=== PATIENT | female | born 1990 | race Caucasian/White ===

== ENCOUNTER 2017-11-16 14:39 | Inpatient (IN) ==
[2017-11-16] MEDS ORDERED: Oxytocin 20 units/ LR 1000 mL 20 UNIT/1,000 ML BAG IVC ONE (14:43)
[2017-11-16] MEDS ORDERED: Famotidine 20 MG/2 ML VIAL IVP ONE (14:43)
[2017-11-16] MEDS ORDERED: CeFAZolin Premix DUPLEX 2,000 MG/50 ML BAG IVPB ONE (14:43)
[2017-11-16] MEDS ORDERED: Metoclopramide 10 MG/2 ML VIAL IVP ONE (14:43)
[2017-11-16] MEDS ORDERED: Ringers Solution, Lactated 1,000 ML IVC SCH ×2 (14:45→16:15)
--- NOTE | 2017-11-16 14:49 | OB/GYN History & Physical ---
Date of Encounter: 11/16/17 Time of Encounter: 14:45 Assessment and Plan (1) and not yet delivered in third trimester Current visit: Yes Status: Acute (2) 37 weeks gestation of Current visit: Yes Status: Acute (3) Spontaneous rupture of membranes Current visit: Yes Status: Acute (4) Breech presentation Current visit: Yes Status: Acute Patient will be Kept nothing by mouth for primary low transverse section Qualifiers: Fetus number: single or unspecified fetus Qualified Code(s): O32.1XX0 - Maternal care for breech presentation, not applicable or unspecified History of Present Illness HPI: Ms. Miranda is a 27 year old female 3 para 2 at 37 and 0 seconds weeks who presented to labor and delivery with complaint of leaking of fluid starting approximately 1 PM she states she was at the grocery store had a large gush of fluid on arrival to labor and delivery patient was noted to be grossly ruptured with positive nitrazine ferning and pooling. Patient states that last ultrasound she was breech bedside ultrasound does confirm she is still breech. Because of this patient will be scheduled for a primary section today. She states that she is not really feeling any contractions still having good movement no bleeding. Patient is O+, rubella negative, GBS negative, Varicella positive Past Med Surg Social Fam HX - Past Medical History Source: patient, old records reviewed Medical history: no medical history Psychiatric history: anxiety - Past Surgical History Surgical History: other Additional surgical history: wisdom teeth, nasal surgery - Social History Smoking Status: Never smoker Smokeless Tobacco Status: No Alcohol use: none Drug use: none Occupational status: employed Current living situation: Home - Independent Activity Level: Independent ambulation Recent Out of Country Travel Within the Last 8 Weeks: Yes Exposure or Possible Exposure to Illness During Travel: Yes - Family History Mother Adopted: No Family Member Ethnicity: Non- Living Status: Still Living Hx Family Cardiac Disorders: No Hx Family Respiratory Disorders: No Hx Family Cancer: No Hx Family GI Disorders: No Hx Family Endocrine Disorder: No Hx Family Neuromuscular Disorders: No Hx Family Neurologic Disorders: No Hx Family HEENT Disorders: No Hx Family Autoimmune Disorders: No - Additional Family History Additional family history: Family history noncontributory Obstetrical History - Pregnancies : 3 Para: 2 Term: 2 : 0 Ab's: 0 Livin Medications and Allergies Vit/Iron Fumarate/FA [ Tablet] 1 tab PO DAILY 01/24/16 [History ] Ibuprofen [Motrin] 600 mg PO Q6HR PRN #40 tablet 03/03/16 [Rx] 3 Allergy/AdvReac Type Severity Reaction Status Date / Time No Known Allergies Allergy Verified 01/24/16 19:42 Review of System OB All systems PM: reviewed and no additional remarkable complaints except as stated Exam - Constitutional Constitutional: well developed, well nourished, no acute distress, average body habitus - HEENT HEENT: EOMI, PERRL, Mucus Membranes Moist - Neck Neck exam: full ROM - Lungs Respiratory exam: CTAB - Cardiovascular Cardiovascular exam: RRR - Abdomen Abdomen: Present: bowel sounds normal, gravid (breech by bedside US) - Vagina Vagina: Present: normal moisture (Nitrazine positive, ferning positive, pooling positive) - Cervix Dilation: 2 Effacement: 50 Station: -2 Results All other labs normal.
--- NOTE | 2017-11-16 14:50 | Anesthesia Evaluation PreOp ---
Date of Encounter: 11/16/17 Time of Encounter: 15:00 - Past History Planned Operation: Primary Cardiac History: Denies any Significant Hx Pulmonary History: Denies Any Significant HX ENVIRONMENTAL CONSTRUCTION ENGINEER History: Denies Any Significant HX Other Medical History: Denies Any Significant HX Anesthesia History: No Prior Anesthetic Complications : Yes (37 weeks ) Alcohol Use: none Drug use: none Medications and Allergies Vit/Iron Fumarate/FA [ Tablet] 1 tab PO DAILY 01/24/16 [History ] Ibuprofen [Motrin] 600 mg PO Q6HR PRN #40 tablet 03/03/16 [Rx] 3 Allergy/AdvReac Type Severity Reaction Status Date / Time No Known Allergies Allergy Verified 01/24/16 19:42 - Meds/Allergy Pre-op Review Medications Reviewed: Yes Allergies Reviewed: Yes Beta Blockers on Current Med List: No Anesthesia Results - Labs Laboratory Tests 06/16/15 09/15/17 12:30 14:45 Hgb 11.1 L Hct 34.2 L Plt Count 243 Sodium 137 Potassium 4.0 BUN 13 Creatinine 0.77 Anesthesia Exam Height: 5'4 Weight: 176 lbs NPO (# of Hours): 0900 Apple Pain Scale: 0 - HEENT Pupil (Motor): Pupils equal, EOMI Mallampati: II Teeth: Normal Oral Opening: Greater than 3 - ENVIRONMENTAL CONSTRUCTION ENGINEER LOC: Oriented ENVIRONMENTAL CONSTRUCTION ENGINEER Motor: Normal RUE, Normal LUE, Normal RLE, Normal LLE, Normal Face ENVIRONMENTAL CONSTRUCTION ENGINEER Sensory: Normal: RUE, LUE, RLE, LLE, Face - Cardiac Rhythm: Regular Murmur: None JVD: No Carotid Bruit: No - Pulmonary Breath Sounds: bilateral Clear Respiratory Effort: Symmetrical Anesthesia Assess/Plan ASA Score: 2 Modified Osseo Scale for Level of Consciousness: Cooperative, oriented, and tranquil Anesthetic Plan: Regional Monitoring Plan: Standard Monitors Recovery Plan: PACU (Discussed SAB, possible GA, agrees to proceed)
[2017-11-16] MEDS ORDERED: EPHEDrine 50 MG/ML VIAL ONE (14:53)
[2017-11-16] MEDS ORDERED: Morphine Sulfate/PF 5mg/10mL Vial ONE (14:53)
[2017-11-16] MEDS ORDERED: Lidocaine -MPF 1% 5 ML AMPUL ONE (14:54)
[2017-11-16] MEDS ORDERED: *HR* FentaNYL (PF) 100 MCG/2 ML VIAL ONE (14:54)
[2017-11-16] MEDS ORDERED: Water for inj. (sterile) 10 ML IV ONE (14:54)
[2017-11-16] MEDS ORDERED: Ondansetron 4 MG/2 ML VIAL ONE (14:54)
[2017-11-16] MEDS ORDERED: *HR* Oxytocin 10 UNIT/ML VIAL IM ONE (14:58)
[2017-11-16 15:10] LABS: Basophils % 0.1 %; Eosinophils # 0.1 K/mcL (0.0-0.6); Eosinophils % 0.7 %; Hematocrit 34.9 % (35.3-44.9); Hemoglobin 11.4 g/dL (11.5-15.4); Immature Granulocytes % 0.8 % (0-4); Lymphocytes % 18.6 %; Mean Corpuscular HGB Conc 32.7 g/dL (31.6-35.5); Mean Corpuscular Hemoglobin 30.3 pg (28.0-33.3); Mean Corpuscular Volume 92.8 fL (83.0-100.0); Mean Platelet Volume 10.3 fL (9.4-12.4); Monocytes # 0.9 K/mcL (0.0-1.3); Monocytes % 8.4 %; Neutrophils # 7.7 K/mcL (1.6-8.9); Platelet Count 200 K/mcL (140-400); Red Blood Count 3.76 M/mcL (3.82-4.97); Red Cell Distribution Width 14.1 % (11.5-14.5); Segmented Neutrophils % 71.4 %
[2017-11-16 15:20] LABS: Amphetamine Screen,Urine Negative ng/mL (Cutoff=1000); Barbiturate Screen,Urine Negative ng/mL (Cutoff=200); Benzodiazepines Screen,Urine Negative ng/mL (Cutoff=200); Cannabinoid Screen,Urine Negative ng/mL (Cutoff = 50); Cocaine Screen,Urine Negative ng/mL (Cutoff= 300); Opiate Screen,Urine Negative ng/mL (Cutoff=300); Phencyclidine Screen,Urine Negative ng/mL (Cutoff=25)
[2017-11-16] MEDS ORDERED: Ringers Solution, Lactated 1,000 ML ONE (15:42)
--- NOTE | 2017-11-16 15:58 | Anesthesia Procedures ---
Date of Encounter: 11/16/17 Time of Encounter: 15:56 Procedures: Anesthesia - Epidural/Spinal Patient ID/Chart reviewed: Yes Patient examined: Yes OB Eval: Gestational age: 37 OB Eval: : 3 OB Eval: Hx Para: 2 OB Eval: Contractions: Non-stressed pattern Consent Obtained: Yes Supplemental Oxygen: None/Room Air Site Prep: Aseptic Technique, Sterile prep and drape, Povidone-Iodine 1% Patient position: upright Local Anesthetic: Lidocaine 1% Amount of Local Anesthetic used: 3 Interspace Used: L4-L5 Blood: No CSF: Yes Paresthesia: No Spinal Needle Gauge: 25 Spinal Dose: 2.5ml 0.5%bupi, 15mcg fentanyl, 0.2mg duramorph Procedure: pt tolerated procedure well. vss. no complications. spinal time [id number]
[2017-11-16] MEDS ORDERED: *HR* Promethazine 25 MG/ML VIAL IVP PRN (16:05)
[2017-11-16] MEDS ORDERED: *HR* Morphine 2 MG/ML SYRINGE IVP PRN ×2 (16:05→17:38)
[2017-11-16] MEDS ORDERED: *HR* HYDROmorphone 2 MG TABLET PO PRN (16:05)
[2017-11-16] MEDS ORDERED: *HR* OxyCODONE Immed Rel 5 MG TABLET PO PRN (16:05)
[2017-11-16] MEDS ORDERED: Naloxone 0.4 MG/ML INJ IVP PRN (16:05)
[2017-11-16] MEDS ORDERED: Acetaminophen IV 1,000 MG/100 ML INFUS..BTL IVPB ONE (16:05)
[2017-11-16] MEDS ORDERED: Ondansetron 4 MG/2 ML VIAL IVP ONE (16:05)
[2017-11-16] MEDS ORDERED: *HR* Phenylephrine 10 MG/ML VIAL ONE (16:15)
--- NOTE | 2017-11-16 16:47 | OB/GYN Procedure Note ---
Section - Date of procedure: 11/16/17 Preop diagnosis: other (Intrauterine at 37 and 07 weeks, spontaneous rupture membranes, breech presentation) Post-op diagnosis: same (With blayne breech presentation) Procedure: primary low transverse Surgeon: Og Rizo Quantitated Blood Loss: 500 Was there an nurse practitioner physicians assistant present: No Anesthesiologist: Dmitriy Grubbs Torch Operator: Milan Warren Anesthesia Type: Spinal section complications: none Disposition: L&D Recovery Room - Infant (s) A Infant Delivery Date: 11/16/17 Infant Delivery Time: 16:12 Presentation: blayne breech Route of delivery: other ( section) Gender: Female Viability: Viable Pounds: 5 Ounces: 15 Gram Weight: 2.69 kg at 1 minute: 8 at 5 minutes: 8 Shoulder Dystocia: not encountered Specimens collected: cord blood Placenta: spontaneous Cord: 3 umbilical vessels - Narrative Narrative: Patient is a 27-year-old 3 para 2 at 37-0/7 weeks who presents 11 delivery with complaint of spontaneous rupture membranes at approximately 1300. Patient was grossly ruptured and noted to be in a breech presentation patient has known she was already breech and had discussed section with her primary TRAINING DEVELOPER because she was ruptured section will be performed today. Procedure: Patient was taken to the operating room where spinal anesthesia was found adequate. She was placed in the dorsal supine position with leftward tilt prepped and draped in usual fashion. Timeout was then obtained. A Pfannenstiel incision was made with the scalpel and carried down through the underlying tissue until the fascia was identified. This was nicked in the midline and extended laterally with [place] scissors. The superior and inferior edges of the fascia were grasped tented up and dissected off the rectus muscles. Rectus muscles were in the midline parietal peritoneum was identified tented up and entered sharply. This was extended superiorly and inferiorly with Metzenbaum scissors. The bladder blade was inserted the vesicouterine peritoneum was identified tented up and entered sharply. This was extended laterally the bladder flap was created digitally. The lower uterine segment was incised with a scalpel extended laterally with digital manipulation. The was noted to be in a blayne breech presentation the buttocks and hips were then delivered and followed by the legs the arms were swept across the chest and head was delivered there was a loose nuchal cord 1. The cord was clamped and cut as the was being bulb suctioned and the was handed off to waiting pediatric team. Cord blood was collected placenta was then delivered spontaneously 3 vessel cord. The uterus was exteriorized and cleaned of all clots and debris. The lower uterine segment was then closed using 0 Vicryl in a running locking stitch by a 2 layer closure. Good hemostasis was noted. Uterus was returned to the abdomen and gutters were cleaned of all clots and debris then copiously irrigated. No active bleeding was noted the fascia was then closed using a #1 stratafix in a running stitch and the skin was closed using a 4-0 Vicryl in a subcuticular manner. All needles lap sponge counts were correct 3 she did receive preoperative antibiotics. The patient was taken to the recovery room in stable condition where she will be observed for 2 hours before being taken to the floor.
--- NOTE | 2017-11-16 17:38 | Anesthesia Evaluation Post Op ---
Date of Encounter: 11/16/17 Time of Encounter: 17:38 - Lungs Lungs: Clear Ascult./Percussion - Airway Airway: Non-obstructed - Cardiovascular Regular Rate, Baseline Rhythm - Mental Status Mental Status: Alert & Oriented, Answers Appropriately - Pain Pain Scale: 2 Pain Scale used: Numeric (1 - 10) - Nausea Vomiting Nausea Vomiting: Not Present - Hydration Hydration: Tolerates oral liquids, Aviles catheter - Discharge PostOp Status: Transfer Patient to floor
[2017-11-16] MEDS ORDERED: Simethicone 80 MG TAB.CHEW PO PRN (18:57)
[2017-11-16] MEDS ORDERED: Ondansetron 4 MG/2 ML VIAL IVP PRN (18:57)
[2017-11-16] MEDS ORDERED: Oxytocin 20 units/ LR 1000 mL 20 UNIT/1,000 ML BAG IVC SCH (18:57)
[2017-11-16] MEDS ORDERED: Metoclopramide 10 MG/2 ML VIAL IVP PRN (18:57)
[2017-11-16] MEDS ORDERED: *HR* OxyCODONE/APAP 5/325 TABLET PO PRN (18:57)
[2017-11-16] MEDS ORDERED: Lanolin 7 G OINT...G. TP PRN (18:57)
[2017-11-16] MEDS ORDERED: Sennosides 8.6 MG TABLET PO PRN (18:57)
[2017-11-16] MEDS: Ibuprofen 600 MG TABLET PO PRN (21:37)
[2017-11-17] MEDS: Ibuprofen 600 MG TABLET PO PRN ×3 (04:55→20:26)
[2017-11-17 06:44] LABS: Basophils % 0.1 %; Eosinophils # 0.1 K/mcL (0.0-0.6); Eosinophils % 0.4 %; Hematocrit 30.6 % (35.3-44.9); Hemoglobin 10.2 g/dL (11.5-15.4); Immature Granulocytes % 0.8 % (0-4); Lymphocytes # 1.5 K/mcL (0.6-4.6); Mean Corpuscular HGB Conc 33.3 g/dL (31.6-35.5); Mean Corpuscular Hemoglobin 30.9 pg (28.0-33.3); Mean Corpuscular Volume 92.7 fL (83.0-100.0); Mean Platelet Volume 10.4 fL (9.4-12.4); Monocytes % 8.2 %; Neutrophils # 9.7 K/mcL (1.6-8.9); Platelet Count 184 K/mcL (140-400); Red Cell Distribution Width 14.2 % (11.5-14.5); Segmented Neutrophils % 78.5 %
[2017-11-17] MEDS: Prenatal Vit/FA 1 EACH TABLET PO SCH (08:58)
--- NOTE | 2017-11-17 11:21 | OB/GYN Progress Note ---
Date of Encounter: 11/17/17 Time of Encounter: 11:19 - Assessment and Plan (1) Status post primary low transverse section Current Visit: Yes Status: Acute Continue routine care Abdominal binder as needed Anticipate discharge home tomorrow (2) Breast feeding status of mother Current Visit: Yes Status: Acute when necessary Subjective - Subjective Principal diagnosis: s/p PLTCS Interval history: Feeling well. Out of bed without dizziness. Cramping minimal, using ibuprofen and abdominal binder. Breast-feeding every 2-3 hours. Some nipple soreness. Voiding without difficulty. Passing flatus, no BM yet. Tolerating regular diet. Patient reports: appetite normal, voiding normally, pain well controlled, ambulating normally : doing well, nursing well Objective - Vital Signs Latest vital signs: Vital Signs Temp Pulse Resp BP Pulse Ox 11/17/17 07:30 98.4 F 76 16 97/62 11/17/17 04:22 98.6 F 79 16 104/64 98 11/17/17 01:00 98.6 F 90 18 101/59 97 11/17/17 00:04 98.7 F 83 16 104/65 98 11/16/17 21:42 98.1 F 88 16 100/63 96 11/16/17 20:20 98.3 F 85 16 117/72 97 11/16/17 19:55 98.1 F 88 16 113/71 97 11/16/17 19:05 98.0 F 84 16 108/70 99 11/16/17 18:35 97.7 F 97 16 112/74 99 11/16/17 18:13 97.7 F 80 16 117/79 99 Intake and Output 11/16/17 11/17/17 11/17/17 23:59 07:59 15:59 Intake Total 600 / 600 700 / 700 240 / 240 Output Total 500 / 500 1600 / 1600 600 / 600 Balance 100 / 100 -900 / -900 -360 / -360 Intake: Oral 600 / 600 700 / 700 240 / 240 Output: Urine 400 / 400 600 / 600 Catheter 500 / 500 1200 / 1200 Other: Meal Dinner Breakfast Percent of Meal Consumed 100% 100% Weight 80.5 kg - Exam Lungs: bilateral: normal Chest: Normal S1, Normal S2 Extremities: Present: normal Abdomen: Present: normal appearance, soft Incision: Present: normal, dry, dressed Uterus: Present: normal, firm Fundal Height: 0 (Midline) - Labs Labs: Laboratory Results - last 24 hr 11/16/17 11/16/17 11/17/17 14:45 14:45 06:29 WBC 10.9 12.3 H RBC 3.76 L 3.30 L Hgb 11.4 L 10.2 L Hct 34.9 L 30.6 L MCV 92.8 92.7 MCH 30.3 30.9 MCHC 32.7 33.3 RDW 14.1 14.2 Plt Count 200 184 MPV 10.3 10.4 Immature Gran % 0.8 0.8 Seg Neutrophils % 71.4 78.5 Lymphocytes % 18.6 12.0 Monocytes % 8.4 8.2 Eosinophils % 0.7 0.4 Basophils % 0.1 0.1 Neutrophils # 7.7 9.7 H Lymphocytes # 2.0 1.5 Monocytes # 0.9 1.0 Eosinophils # 0.1 0.1 Basophils # 0.0 0.0 Urine Opiates Screen Negative Ur Barbiturates Screen Negative Ur Phencyclidine Scrn Negative Ur Amphetamines Screen Negative U Benzodiazepines Scrn Negative Urine Cocaine Screen Negative U Marijuana (THC) Screen Negative Ur Drug Screen Interp See Below
[2017-11-18 07:58] VITALS: BP 108/73
[2017-11-18] MEDS: Prenatal Vit/FA 1 EACH TABLET PO SCH (10:10)
[2017-11-18] MEDS: Ibuprofen 600 MG TABLET PO PRN (10:10)
--- NOTE | 2017-11-18 10:17 | Discharge Summary ---
Date of Encounter: 11/18/17 Time of Encounter: 10:17 - Discharge Diagnosis (1) Status post primary low transverse section Priority: Primary Status: Acute Comments: Stable, meeting all PP milestones, pain well managed on po pain medication, pumping, + flatus, desires discharge. - Discharge Medications Prescriptions: Docusate [Colace] 100 mg PO BID #60 capsule Ferrous Sulfate 325 mg PO DAILY #60 tablet Ibuprofen [Motrin] 600 mg PO Q6H PRN #60 tablet PRN Reason: Cramping OxyCODONE/APAP 5/325 [Percocet 5/325 MG] 1 each PO Q4H PRN 5 Days #14 tablet PRN Reason: Moderate pain 4-6 Home Medications: Vit/Iron Fumarate/FA [ Tablet] 1 tab PO DAILY 01/24/16 [History ] Docusate [Colace] 100 mg PO BID #60 capsule 11/18/17 [Rx] Ferrous Sulfate 325 mg PO DAILY #60 tablet 11/18/17 [Rx] Ibuprofen [Motrin] 600 mg PO Q6H PRN #60 tablet 11/18/17 [Rx] Lanolin [Lansinoh] 1 appl TP TID PRN oint...g. 11/18/17 [Rx] OxyCODONE/APAP 5/325 [Percocet 5/325 MG] 1 each PO Q4H PRN 5 Days #14 tablet [Rx] Vit/FA 1 each PO DAILY tablet 11/18/17 [Rx] Simethicone [Gas-X] 80 mg PO TID PRN tab.chew 11/18/17 [Rx] Allergies/Adverse Reactions: 3 Allergy/AdvReac Type Severity Reaction Status Date / Time No Known Allergies Allergy Verified 01/24/16 19:42 Data Procedures and tests throughout hospitalization: Laboratory Tests 11/16/17 11/16/17 11/17/17 14:45 14:45 06:29 WBC 10.9 12.3 H RBC 3.76 L 3.30 L Hgb 11.4 L 10.2 L Hct 34.9 L 30.6 L MCV 92.8 92.7 MCH 30.3 30.9 MCHC 32.7 33.3 RDW 14.1 14.2 Plt Count 200 184 MPV 10.3 10.4 Immature Gran % 0.8 0.8 Seg Neutrophils % 71.4 78.5 Lymphocytes % 18.6 12.0 Monocytes % 8.4 8.2 Eosinophils % 0.7 0.4 Basophils % 0.1 0.1 Neutrophils # 7.7 9.7 H Lymphocytes # 2.0 1.5 Monocytes # 0.9 1.0 Eosinophils # 0.1 0.1 Basophils # 0.0 0.0 Urine Opiates Screen Negative Ur Barbiturates Screen Negative Ur Phencyclidine Scrn Negative Ur Amphetamines Screen Negative U Benzodiazepines Scrn Negative Urine Cocaine Screen Negative U Marijuana (THC) Screen Negative Ur Drug Screen Interp See Below Date of admission: 11/16/17 14:39 Primary care physician: PCP NONE Discharging clinician: Demetra Hanks Anticipated date of discharge: 11/18/17 - Patient Status Disposition: Home, Self-Care Condition: Good Functional capacity at discharge: independent ambulation Overall status at discharge: patient is progressing back to baseline - Discharge Instructions Follow Up With: NONE,PCP [Primary Care Provider] - Og Rizo DO [Partnered Physician] - - Diet and Activity Activity: resume usual activities as tolerated Diet: regular diet Hospital Course Reason for admission: active labor Delivery: section Episiotomy: none Laceration: none Other procedures: none complications: none Discharge diagnosis: IUP at term delivered baby: female Hospital course: esarean Section - Date of procedure: 11/16/17 Preop diagnosis: other (Intrauterine at 37 and 07 weeks, spontaneous rupture membranes, breech presentation) Post-op diagnosis: same (With blayne breech presentation) Procedure: primary low transverse Surgeon: Og Rizo Quantitated Blood Loss: 500 Was there an assistant passenger locomotive engineer present: No Anesthesiologist: Dmitriy Grubbs Councilor: Milan Warren Anesthesia Type: Spinal section complications: none Disposition: L&D Recovery Room - Infant (s) A Infant Delivery Date: 11/16/17 Delivery Time: 16:12 Presentation: blayne breech Route of delivery: other ( section) Gender: Female Viability: Viable Pounds: 5 Ounces: 15 Gram Weight: 2.69 kg at 1 minute: 8 at 5 minutes: 8 Shoulder Dystocia: not encountered Specimens collected: cord blood Placenta: spontaneous Cord: 3 umbilical vessels Stable in PP and appropriate for discharge OAARS reviewed Time Attestation: Total time spent providing and/or coordinating discharge services: Time Spent: Less than 30 minutes - VTE Documentation of Mechanical Device: Intermittent pneumatic compression device Exam - Constitutional Vitals: Temp Pulse Resp BP Pulse Ox 99.1 F 98 16 108/73 98 11/18/17 07:58 11/18/17 07:58 11/18/17 07:58 11/18/17 07:58 11/18/17 07:58 General appearance IM: A&O X 3 - Respiratory Respiratory exam: Present: CTAB - Cardiovascular Cardiovascular exam IM: Present: RRR - GI/Abdominal GI/Abdominal exam IM: normal bowel sounds, soft Incision: normal, intact - Uterus Position: At Umbilicus - Extremities Exam Extremities exam IM: Present: normal capillary refill - Neurological Exam Neurological exam: normal gait, oriented X3 - Psychiatric Additional comments: reports good mood
== END 2017-11-18 10:57 | disposition home or self-care (01) | DRG 540 ==
LOC: 1NENULAB 14:39 → 1NENUOBS 18:06
PROVIDERS: ADMIT Obstetrics & Gynecology; ATTEND Obstetrics & Gynecology